=== PATIENT | female | born 1990 | race Caucasian/White ===

== ENCOUNTER 2020-10-03 09:40 | Emergency (ER) | payer OTHER, SELFPAY ==
--- NOTE | 2020-10-03 | ECG_ITS ---
Test Reason : HYPOTENSIVE VAGINAL Blood Pressure : / mmHG Vent. Rate : 119 BPM Atrial Rate : 119 BPM P-R Int : 152 ms QRS Dur : 074 ms QT Int : 322 ms P-R-T Axes : 066 051 041 degrees QTc Int : 452 ms Sinus tachycardia Otherwise normal EKG No previous ECGs available Referred By: Steph Rice Electronically Signed By:DEISI SYLVESTER
[2020-10-03 09:57] VITALS: BP 81/49; PULSE 107; RESP 18; TEMP 36.6; O2SAT 97; BMI 32.1
[2020-10-03 10:13] VITALS: BP 105/37; PULSE 119; RESP 20; O2SAT 98
[2020-10-03 10:19] VITALS: BP 99/39; PULSE 115; RESP 20; O2SAT 99
[2020-10-03 10:20] VITALS: BP 99/39; PULSE 115; RESP 18; TEMP 36.7
--- NOTE | 2020-10-03 10:22 | ED.PREGNANCY ---
HPI - General Chief complaint: General Medical <REX Shipman - Last Filed: 10/03/20 12:40> Stated complaint: vag bleed, 14 wks preg <REX Shipman - Last Filed: 10/03/20 12:40> Time Seen by Provider: 10/03/20 10:02 <REX Shipman - Last Filed: 10/03/20 12:40> Source: patient and EMS <REX Shipman - Last Filed: 10/03/20 12:40> Mode of arrival: EMS <REX Shipman - Last Filed: 10/03/20 12:40> Limitations: no limitations <REX Shimpan - Last Filed: 10/03/20 12:40> History of Present Illness HPI Narrative: 30-year-old female was approximately 14 weeks by last menstrual period June 2020 seen by [facility] telehealth presenting to the ED with complaints of sudden onset of lower abdominal pain/back pain that started approximately 03:00 with bright red blood spotting then at approximately 05:00 she had a large clot and since then has been bleeding profusely. Denies any dizziness, headaches, chest pain, shortness of breath, dyspnea on exertion, orthopnea or any other symptoms complaints or concerns at this time. She had a kidney biopsy a few months ago at [facility] and they nicked her kidney and became anemic and required blood transfusions. <REX Shipman - Last Filed: 10/03/20 12:40> MD Complaint: abdominal pain and vaginal bleeding <REX Shipman - Last Filed: 10/03/20 12:40> Onset (ago): hour(s) (3 AM ) <REX Shipman - Last Filed: 10/03/20 12:40> Pain Consistency: constant <REX Shipman Last Filed: 10/03/20 12:40> Location: pelvis, abdomen and other (Back) <REX Shipman Last Filed: 10/03/20 12:40> Severity: moderate <REX Shipman Last Filed: 10/03/20 12:40> Quality: Cramping and Constant <REX Shipman - Last Filed: 10/03/20 12:40> Relieving factors: none <REX Shipman Last Filed: 10/03/20 12:40> Vaginal discharge: none <REX Shipman Last Filed: 10/03/20 12:40> Related Data Allergies/Adverse reactions: Allergies Allergy/AdvReac Type Severity Reaction Status Date / Time No Known Allergies Allergy Verified 10/03/20 10:02 <REX Shipman Last Filed: 10/03/20 12:40> Review of Systems Review of Systems: Constitutional : No Fever, No Chills ENT/Mouth : No sore throat, No Rhinorrhea Eyes: No Eye Pain, No Redness Cardiovascular : No Chest Pain, No SOB Respiratory : No Cough, No Sputum, No Wheezing Gastrointestinal : + abdominal pain, No Nausea, No Vomiting, No Diarrhea Genitourinary : + irregular bleeding, No Dysuria, No Urinary Frequency, No pelvic pain Musculoskeletal : No Myalgias Skin : No rash Neuro : No Weakness, No Headache Psych : No Anxiety/Panic, No Depression Heme/Lymph: No bruising, No Lymphadenopathy Endocrine : No Polyuria, No Polydipsia <REX Shipman Last Filed: 10/03/20 12:40> Yes all other systems are reviewed and are negative <REX Shipman Last Filed: 10/03/20 12:40> [facility] Past Medical History Attestation statement: The following information was validated with the patient. <REX Shipman Last Filed: 10/03/20 12:40> Physical Exam Vital Signs: Vital Signs: Last Vital Signs Temp 98.1 F 10/03/20 12:06 Pulse 115 H 10/03/20 12:06 Resp 18 10/03/20 12:06 BP 99/39 L 10/03/20 12:06 Pulse Ox 99 10/03/20 10:19 Body Mass Index 32.1 vital signs have been reviewed as normal and appeared to be correct. Blood pressure hypotensive at 81/49. Heart rate tachycardic at 01:07. Respiration rate normal. Temperature normal. Oxygen saturation normal. <REX Shipman Last Filed: 10/03/20 12:40> Vital Signs: Last Vital Signs Temp 98.1 F 10/03/20 12:06 Pulse 115 H 10/03/20 12:06 Resp 18 10/03/20 12:06 BP 99/39 L 10/03/20 12:06 Pulse Ox 99 10/03/20 10:19 Body Mass Index 32.1 <Serafin Santiago MD - Last Filed: 10/03/20 14:21> Appearance: Alert. Oriented X3. In acute distress. Head: Normal external exam. Normocephalic. Atraumatic. Eyes: PERRLA. EOMI. Conjunctiva and sclera normal. Eyelids normal. ENT: Pharynx normal. Uvula midline. Moist mucous membranes. Neck: Normal inspection. Neck supple. FROM. No adenopathy. Thyroid Normal. No meningeal signs. No neck mass noted. CVS: Normal heart rate and rhythm. Heart sound normal. No murmurs noted. Pulses normal throughout. Respiratory: No respiratory distress. Painless inspiration. Breath sounds normal. No wheezes/rales/rhonchi noted. Chest nontender. No accessory muscle usage noted or decreased air movement noted. Abdomen: Soft and and moderate tenderness throughout. Bowel sounds normal in all 4 quadrants. No distention noted. No organomegaly noted. No visible injury noted. : On speculum exam patient is currently hemorrhaging with large amount of clots. No tissue present. Back: Full range of motion noted. Skin: Skin warm and dry. Normal skin color. Normal skin turgor. No rashes/lesions/lacerations noted. Extremities: No lower extremity edema. Extremities exhibit normal range of motion. Extremities nontender. Neuro: Oriented X 3. No motor deficit. No sensory deficit. Reflexes normal. <REX Shipman - Last Filed: 10/03/20 12:40> Course Course Course Narrative: 10:30am Dr. Kaur at bedside evacuating products of conception patient is awaiting to be transferred EMS is at bedside as well awaiting for Dr. Kaur to finish evacuating products of conception. - patient has currently lost approximately 300 mL of blood. - her blood pressure at this time is 110/38 pulse is 120 at this time. Patient is being transported by EMS to [facility]. <REX Shipman - Last Filed: 10/03/20 12:40> I was called to room 7 for evaluating is 30 years old female 14 weeks with severe vaginal bleeding, as a walk in the room I see a 30-year-old female looking pale, hypotensive, tachycardia, with extensive vaginal bleed considered to be severe, and REX Choi is in the room. Patient had 2 IV access, IV fluid was ordered, type O-negative blood was ordered, vaginal gauze packing, I spoke with Dr. Vincent brenner who is coming from home, activated nurse in charge Miryam, I was told that the OR is busy with another surgical case. The case discussed with OB at [facility] . Dr. Vincent Phoenix in the ED at the bedside removing material of conception from the cervix and blood clots, patient still actively with vaginal bleeding. Ambulance is waiting in the emergency department to transport patient to [facility]. <Serafin Santiago MD - Last Filed: 10/03/20 14:21> MDM - OB/Uterine Contractions MDM Narrative Medical decision making narrative: 10:15am 30-year-old female currently approximately 14 weeks by telehealth appointment with last menstrual period June 2020 presenting to the ED with lower abdominal pain/back pain with hemorrhaging since 03:00. On exam patient is alert and oriented x3. She is tachycardic and hypotensive. On vaginal exam she is hemorrhaging with large amounts of clots. Will start IV fluids, massive transfusion protocol, packing was placed to control the bleeding Ob was also called although Dr. Vincent Phoenix is unable to bring her to the OR at this time due to he has a critical case in the OR therefore contacted [facility] and Dr. Ella GOMEZ is accepting the patient and she will be going straight to we to for a D&C. Patient and family at bedside understand and agree with this plan. <REX Shipman - Last Filed: 10/03/20 12:40> Medical Records Attestation: I reviewed the patient's medical records. <REX Shipman - Last Filed: 10/03/20 12:40> Lab Data Result diagrams: : 10/03/20 10:22 10/03/20 10:22 <REX Shipman - Last Filed: 10/03/20 12:40> Labs: Lab Results 10/03/20 10/03/20 10/03/20 Range/Units 10:14 10:22 10:22 WBC 18.4 H (4.8-10.8) X10*3/uL RBC 3.17 L (4.20-5.50) X10*6/uL Hgb 10.2 L (12.0-16.0) g/dl Hct 29.1 L (37-47) % MCV 91.8 (80-98) fL MCH 32.2 (27.0-33.0) pg MCHC 35.1 H (31.0-35.0) g/dl RDW 13.2 (11.0-16.0) % Plt Count 170 (160-400) X10*3/uL MPV 10.0 (9.4-12.3) fL Immature Gran % (Auto) 0.9 H (0.0-0.4) % Neut % (Auto) 79.0 H (45-73) % Lymph % (Auto) 15.0 L (20-40) % Upson % (Auto) 4.7 (2-11) % Eos % (Auto) 0.2 (0-4) % Baso % (Auto) 0.2 (0-2) % Lymph # (Auto) 2.8 (1.2-4.9) X10*3/uL Upson # (Auto) 0.9 (0.1-1.2) X10*3/uL Eos # (Auto) 0.0 (0.0-0.4) X10*3/uL Baso # (Auto) 0.0 (0.0-0.2) X10*3/uL Abs Immat Gran (auto) 0.16 H (0.00-0.03) X10*3/uL Absolute Neuts (auto) 14.6 H (2.0-8.3) X10*3/uL Absolute Nucleated RBC 0.000 (0.0-0.012) X10*3/uL Nucleated RBC % (auto) 0.0 (0.0-0.2) /100WBC PT 12.6 (10.8-13.0) SEC INR 1.1 (0.9-1.1) APTT 26.9 (24.1-38.0) SEC Hold Blue Top SEE NOTE Sodium (135-145) mmol/L Potassium (3.3-5.1) mmol/L Chloride (96-108) mmol/L Carbon Dioxide (22-29) mmol/L Anion Gap (12-20) BUN (9-16) mg/dL Creatinine (0.5-1.4) mg/dL Estim Creat Clear Calc Estimated GFR Random Glucose (60-115) mg/dL Calcium (8.4-10.2) mg/dL Blood Type O Positive Antibody Screen NEGATIVE Crossmatch See Detail 10/03/20 Range/Units 10:22 WBC (4.8-10.8) X10*3/uL RBC (4.20-5.50) X10*6/uL Hgb (12.0-16.0) g/dl Hct (37-47) % MCV (80-98) fL MCH (27.0-33.0) pg MCHC (31.0-35.0) g/dl RDW (11.0-16.0) % Plt Count (160-400) X10*3/uL MPV (9.4-12.3) fL Immature Gran % (Auto) (0.0-0.4) % Neut % (Auto) (45-73) % Lymph % (Auto) (20-40) % Upson % (Auto) (2-11) % Eos % (Auto) (0-4) % Baso % (Auto) (0-2) % Lymph # (Auto) (1.2-4.9) X10*3/uL Upson # (Auto) (0.1-1.2) X10*3/uL Eos # (Auto) (0.0-0.4) X10*3/uL Baso # (Auto) (0.0-0.2) X10*3/uL Abs Immat Gran (auto) (0.00-0.03) X10*3/uL Absolute Neuts (auto) (2.0-8.3) X10*3/uL Absolute Nucleated RBC (0.0-0.012) X10*3/uL Nucleated RBC % (auto) (0.0-0.2) /100WBC PT (10.8-13.0) SEC INR (0.9-1.1) APTT (24.1-38.0) SEC Hold Blue Top Sodium 136 (135-145) mmol/L Potassium 4.3 (3.3-5.1) mmol/L Chloride 107 (96-108) mmol/L Carbon Dioxide 22 (22-29) mmol/L Anion Gap 11 L (12-20) BUN 12 (9-16) mg/dL Creatinine 0.81 (0.5-1.4) mg/dL Estim Creat Clear Calc 95.4 Estimated GFR > 60 Random Glucose 135 H (60-115) mg/dL Calcium 8.2 L (8.4-10.2) mg/dL Blood Type Antibody Screen Crossmatch <REX Shipman - Last Filed: 10/03/20 12:40> Lab Results 10/03/20 10/03/20 10/03/20 Range/Units 10:14 10:22 10:22 WBC 18.4 H (4.8-10.8) X10*3/uL RBC 3.17 L (4.20-5.50) X10*6/uL Hgb 10.2 L (12.0-16.0) g/dl Hct 29.1 L (37-47) % MCV 91.8 (80-98) fL MCH 32.2 (27.0-33.0) pg MCHC 35.1 H (31.0-35.0) g/dl RDW 13.2 (11.0-16.0) % Plt Count 170 (160-400) X10*3/uL MPV 10.0 (9.4-12.3) fL Immature Gran % (Auto) 0.9 H (0.0-0.4) % Neut % (Auto) 79.0 H (45-73) % Lymph % (Auto) 15.0 L (20-40) % Upson % (Auto) 4.7 (2-11) % Eos % (Auto) 0.2 (0-4) % Baso % (Auto) 0.2 (0-2) % Lymph # (Auto) 2.8 (1.2-4.9) X10*3/uL Upson # (Auto) 0.9 (0.1-1.2) X10*3/uL Eos # (Auto) 0.0 (0.0-0.4) X10*3/uL Baso # (Auto) 0.0 (0.0-0.2) X10*3/uL Abs Immat Gran (auto) 0.16 H (0.00-0.03) X10*3/uL Absolute Neuts (auto) 14.6 H (2.0-8.3) X10*3/uL Absolute Nucleated RBC 0.000 (0.0-0.012) X10*3/uL Nucleated RBC % (auto) 0.0 (0.0-0.2) /100WBC PT 12.6 (10.8-13.0) SEC INR 1.1 (0.9-1.1) APTT 26.9 (24.1-38.0) SEC Hold Blue Top SEE NOTE Sodium (135-145) mmol/L Potassium (3.3-5.1) mmol/L Chloride (96-108) mmol/L Carbon Dioxide (22-29) mmol/L Anion Gap (12-20) BUN (9-16) mg/dL Creatinine (0.5-1.4) mg/dL Estim Creat Clear Calc Estimated GFR Random Glucose (60-115) mg/dL Calcium (8.4-10.2) mg/dL Blood Type O Positive Antibody Screen NEGATIVE Crossmatch See Detail 10/03/20 Range/Units 10:22 WBC (4.8-10.8) X10*3/uL RBC (4.20-5.50) X10*6/uL Hgb (12.0-16.0) g/dl Hct (37-47) % MCV (80-98) fL MCH (27.0-33.0) pg MCHC (31.0-35.0) g/dl RDW (11.0-16.0) % Plt Count (160-400) X10*3/uL MPV (9.4-12.3) fL Immature Gran % (Auto) (0.0-0.4) % Neut % (Auto) (45-73) % Lymph % (Auto) (20-40) % Upson % (Auto) (2-11) % Eos % (Auto) (0-4) % Baso % (Auto) (0-2) % Lymph # (Auto) (1.2-4.9) X10*3/uL Upson # (Auto) (0.1-1.2) X10*3/uL Eos # (Auto) (0.0-0.4) X10*3/uL Baso # (Auto) (0.0-0.2) X10*3/uL Abs Immat Gran (auto) (0.00-0.03) X10*3/uL Absolute Neuts (auto) (2.0-8.3) X10*3/uL Absolute Nucleated RBC (0.0-0.012) X10*3/uL Nucleated RBC % (auto) (0.0-0.2) /100WBC PT (10.8-13.0) SEC INR (0.9-1.1) APTT (24.1-38.0) SEC Hold Blue Top Sodium 136 (135-145) mmol/L Potassium 4.3 (3.3-5.1) mmol/L Chloride 107 (96-108) mmol/L Carbon Dioxide 22 (22-29) mmol/L Anion Gap 11 L (12-20) BUN 12 (9-16) mg/dL Creatinine 0.81 (0.5-1.4) mg/dL Estim Creat Clear Calc 95.4 Estimated GFR > 60 Random Glucose 135 H (60-115) mg/dL Calcium 8.2 L (8.4-10.2) mg/dL Blood Type Antibody Screen Crossmatch <Serafin Santiago MD - Last Filed: 10/03/20 14:21> Critical Care Time Critical Care Time Critical Care Time: Yes <REX Shipman - Last Filed: 10/03/20 12:40> Total Critical Care Time: 60 <REX Shipman - Last Filed: 10/03/20 12:40> Attestation: I personally attest to this time spent taking care of the patient <REX Shipman - Last Filed: 10/03/20 12:40> Discharge Plan Discharge Clinical Impression: Miscarriage, Hemorrhage affecting in first trimester <REX Shipman - Last Filed: 10/03/20 12:40> Patient Disposition: [facility] <REX Shipman - Last Filed: 10/03/20 12:40> Transfer Details: [facility] <REX Shipman - Last Filed: 10/03/20 12:40> [facility] <Serafin Santiago MD - Last Filed: 10/03/20 14:21> Discharge Date/Time: 10/03/20 11:00 <REX Shipman - Last Filed: 10/03/20 12:40>
[2020-10-03 10:26] LABS: Basophils Percent Auto 0.2 % (0-2); Eosinophils Percent Auto 0.2 % (0-4); Hematocrit 29.1 % (37-47); Hemoglobin 10.2 g/dl (12.0-16.0); Imm Gran Abs Auto 0.16 X10*3/uL (0.00-0.03); Imm Gran Pct Auto 0.9 % (0.0-0.4); Lymphocytes Absolute Auto 2.8 X10*3/uL (1.2-4.9); MANUAL DIFF FLAG NO; Mean Corpuscular HGB Conc 35.1 g/dl (31.0-35.0); Mean Corpuscular Hemoglobin 32.2 pg (27.0-33.0); Mean Corpuscular Volume 91.8 fL (80-98); Monocytes Absolute Auto 0.9 X10*3/uL (0.1-1.2); Monocytes Percent Auto 4.7 % (2-11); Neutrophils Absolute Auto 14.6 X10*3/uL (2.0-8.3); Platelet Count 170 X10*3/uL (160-400); Red Blood Count 3.17 X10*6/uL (4.20-5.50); Red Cell Distribution Width 13.2 % (11.0-16.0); White Blood Count 18.4 X10*3/uL (4.8-10.8)
[2020-10-03 10:31] VITALS: BP 94/40; PULSE 117; RESP 18
--- NOTE | 2020-10-03 10:38 | PC.NURSE ---
Doctor Kaur at bedside
[2020-10-03 10:43] LABS: Anion Gap 11 (12-20); Blood Urea Nitrogen 12 mg/dL (9-16); Calcium 8.2 mg/dL (8.4-10.2); Carbon Dioxide 22 mmol/L (22-29); Chloride 107 mmol/L (96-108); Creatinine Clr Calc Pharmacy 95.4; Estimated Glomerular Filt Rate > 60; Glucose Random 135 mg/dL (60-115); Potassium 4.3 mmol/L (3.3-5.1); Sodium 136 mmol/L (135-145)
[2020-10-03 10:44] LABS: INTERNATIONAL NORM RATIO 1.1 (0.9-1.1); Prothrombin Time 12.6 SEC (10.8-13.0)
[2020-10-03] MEDS: 0.9 % Sodium Chloride 1,000 ML 999 ML IVCONT (10:45)
[2020-10-03 10:47] LABS: Partial Thromboplastin Time 26.9 SEC (24.1-38.0)
--- NOTE | 2020-10-03 11:00 | PC.NURSE ---
PT transferred to [facility] post MTP, 2 units packed RBC's infusing by pressure bag Via 20g left and right hands. Report given to medic. Blood infusing upon departure from department.
--- NOTE | 2020-10-03 11:30 | PM.GYNCN ---
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 I was informed on the phone that massive transfusion protocol was initiated because of the heavy bleeding so I requested to call the operating room nursing staff team and the anesthesia provider on-call to come in to be ready for the operating room for suction D&C. Within few minutes while I was driving on my way to the emergency room I received a call back from the nursing supervisor wool shearing to inform me that there is a surgical case going on in the operating room with the anesthesiologist and the nursing staff and that no new surgical case can be started prior to an hour and half , the estimated time needed for this current surgical case to be completed according to the general surgeon performing the procedure. I immediately contacted the emergency room physician photographer's assistant, REX Barron and requested that she calls [facility] and EMT service stat to initiate the transfer because of inability to perform any suction D&C to stop the bleeding. 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 Systems Review of Systems ROS Unobtainable: All systems reviewed & are unremarkable except as noted in HPI and below Cardiovascular: Denies Palpatations, Loss of consciousness and Chest pain Respiratory: Denies Cough, Wheezing and Shortness of breath Musculoskeletal: Denies Low back pain Gastrointestinal: Denies Heartburn, Constipation, Diarrhea, Nausea and Vomiting Genitourinary: Denies Pain with urination, Burning with urination and Urinary frequency Neurological: Denies Migranes Psychological: Denies Depression OB [facility] Social History Social History Advance Directives: No Advance Directives Information Provided: No Meds Allergies Allergy/AdvReac Type Severity Reaction Status Date / Time No Known Allergies Allergy Verified 10/03/20 10:02 Active Medications: Current Medications Generic Name Dose Route Start Last Admin Trade Name Freq PRN Reason Stop Dose Admin Sodium Chloride 1,000 mls @ 999 mls/hr 10/03/20 10:30 Ns IVCONT 10/03/20 11:30 .Q1H1M [facility] FURNITURE REPAIRER Physical Exam Vitals Vital signs: Temp Pulse Resp BP Pulse Ox 98 F 107 H 18 81/49 L 97 10/03/20 09:57 10/03/20 09:57 10/03/20 09:57 10/03/20 09:57 10/03/20 09:57 Body Mass Index 32.1 Constitutional General Appearance: Healthy appearing, Well-nourished and Well-developed Psychiatric Mood and Affect: active and alert, normal mood and normal affect Skin Appearance: No rashes and No lesions Lungs Respiratory Effort: No intercostal retractions Auscultation: Clear to auscultation Cardiovascular Auscultation: RRR Abdomen Auscultation/Inspection/Palpation: Normal bowel sounds, Soft, Non-distended and No tenderness Female Genitalia (Pelvic) Exam: Deferred Additional Comments: Upon my arrival the speculum was already in the patient vagina with 6 gauzez inserted in the vaginal cavity, using a ring forceps all the gauzes were removed inspection revealed products of conception at the cervix with active bleeding. Using ring forceps all the products of conception were removed , they measured 6 x 6 cm . Immediately, the bleeding slowed down but did not stop completely. The patient was put on the stretcher and was transfer to [facility] who accepted the transfer. Tissues were sent to pathology. FURNITURE REPAIRER - Results Labs CBC & Chem 7: 10/03/20 10:22 10/03/20 10:22 Labs: Short CBC 10/03/20 Range/Units 10:22 WBC 18.4 H (4.8-10.8) X10*3/uL Hgb 10.2 L (12.0-16.0) g/dl Hct 29.1 L (37-47) % Plt Count 170 (160-400) X10*3/uL BMP 10/03/20 10:22 Sodium 136 Potassium 4.3 Chloride 107 Carbon Dioxide 22 BUN 12 Creatinine 0.81 Calcium 8.2 L Antibody Screen Antibody Screen NEGATIVE 10/03/20 10:14 Assessment and Plan (1) Incomplete : Status: Acute Explained to the patient the finding on physical exam is consistent was incomplete and since she is still bleeding suction D&C is warranted to stop the bleeding; since we do not have access to the operating room at [place] the patient will be immediately transfer to [facility] for suction D&C to stop the bleeding. 2 units of packed RBCs were already completely transfused, blood work results were not available at this point. All questions answered the patient verbalized understanding and agreed with the plan.
--- NOTE | 2020-10-03 11:31 | PC.NURSE ---
Note written after patient transferred to [facility]. On triage pt found to have heavy vaginal bleeding, clothes saturated with blood, PT 14 weeks and arrived to ED with cramping and bleeding, Blood pressure was 81/49. REX Choi called to room to evaluate patient. Mass transfusion protocol ordered, IV access obtained in pt's right and left hands. MD Kaur was called to bedside, he removed products of conception which were then sent to Lab. PT transferred to [facility] to surgery. PT and family made aware of plan of care.
[2020-10-03 12:06] VITALS: BP 99/39; PULSE 115; RESP 18; TEMP 36.7
== END 2020-10-03 11:00 | disposition short-term general hospital (02) ==
LOC: HO.ED 10:42
PROVIDERS: Physician Assistant Medical; Emergency Provider Emergency Medicine
DX: O03.4 Incomplete spontaneous abortion without complication (principal)
CPT/HCPCS: 36415; 36430; 80048; 85025; 85610; 85730; 86850; 86900; 86901; 86920; 88305; 93005; 96360; 99283; 99291; P9016; P9017